=== PATIENT | female | born 1990 | race Caucasian/White ===

== ENCOUNTER 2022-02-24 11:37 | Emergency (ER) | payer MEDICAID ==
[~2022-02-24] VITALS: Ht 162.6 cm; Wt 90.9 kg
[2022-02-24 12:29] LABS: BASOPHILS # (AUTO) 0.1 X10'3 (0-0.2); BASOPHILS % (AUTO) 0.8 % (0-1); EOSINOPHILS # (AUTO) 0.1 X10'3 (0-0.9); EOSINOPHILS % (AUTO) 1.5 % (0-6); HEMATOCRIT 40.9 % (35.0-45.0); HEMOGLOBIN 13.6 g/dl (12.0-16.0); LYMPHOCYTES # (AUTO) 2.5 X10'3 (1.1-4.8); LYMPHOCYTES % (AUTO) 39.5 % (21-51); MEAN CORPUSCULAR HEMOGLOBIN 31.6 PG (27.0-31.0); MEAN CORPUSCULAR HGB CONC 33.2 g/dL (33.0-36.5); MEAN PLATELET VOLUME 7.5 FL (7.4-10.4); MONOCYTES # (AUTO) 0.5 X10'3 (0-0.9); MONOCYTES % (AUTO) 7.7 % (2-12); NEUTROPHILS # (AUTO) 3.1 X10'3 (1.8-7.7); NEUTROPHILS % (AUTO) 50.5 % (42-75); PLATELET COUNT 262 X10'3 (140-440); RED BLOOD COUNT 4.31 X10'6 (4.20-5.60); RED CELL DISTRIBUTION WIDTH 13.9 % (11.5-14.5); WHITE BLOOD COUNT 6.2 X10'3 (4.5-11.0)
[2022-02-24 12:39] LABS: ALANINE AMINOTRANSFERASE 26 U/L (12-78); ALBUMIN 3.6 G/DL (3.4-5.0); ALKALINE PHOSPHATASE 61 IU/L (46-116); ANION GAP 8 (8-16); ASPARTATE AMINO TRANSFERASE 18 U/L (10-37); BILIRUBIN,TOTAL 0.4 MG/DL (0.1-1.0); BLOOD UREA NITROGEN 14 MG/DL (7-18); BUN/CREATININE RATIO 18.2 (6.6-38.0); CALCIUM 9.4 MG/DL (8.5-10.1); CHLORIDE 104 MMOL/L (99-107); CREATININE 0.77 MG/DL (0.40-0.90); ETHANOL < 0.010 GM/DL (0.0-0.010); GLUCOSE 95 MG/DL (70-104); POTASSIUM 4.5 MMOL/L (3.5-5.1); SODIUM 137 MMOL/L (135-145); TOTAL PROTEIN 7.3 G/DL (6.4-8.2); eGFR 86 ML/MIN
[2022-02-24 13:01] LABS: URINE HCG NEGATIVE (NEG)
[2022-02-24 13:05] LABS: CLARITY,URINE SLIGHTLY CLOUDY (Clear); COLOR,URINE YELLOW (Yellow); GLUCOSE, URINE NEGATIVE (Neg); KETONES,URINE NEGATIVE (Neg); LEUKOCYTE ESTERASE ,URINE MODERATE (Neg); NITRITES, URINE NEGATIVE (Neg); OCCULT BLOOD,URINE NEGATIVE (Neg); PH,URINE 6.5 (4.8-8.0); PROTEIN,URINE NEGATIVE (Neg); UA COLLECTION TYPE CLN CATCH MIDSTREAM; UROBILINOGEN,URINE 0.2 E.U/dL (0.2-1.0)
--- NOTE | 2022-02-24 13:10 | NUR ---
Patient complaining of feeling suicidal. Patient's father is sick and she wants to go back to [place]. Patient is calm and cooperative. continue to monitor.
[2022-02-24 13:12] LABS: BACTERIA,URINE 1+ /HPF (Neg); MUCUS STRANDS NONE SEEN /LPF (Neg); RBC,URINE NONE SEEN /HPF (0-2); SQUAMOUS EPITHELIAL CELL,UR MODERATE /LPF (FEW); WBC CLUMPS,URINE FEW /HPF (NEGATIVE)
[2022-02-24 13:21] LABS: URINE AMPHETAMINE SCREEN NEGATIVE (Neg); URINE BARBITUATE SCREEN NEGATIVE (Neg); URINE BENZODIAZEPINES SCREEN NEGATIVE (Neg); URINE CANNABINOID SCREEN NEGATIVE (Neg); URINE COCAINE SCREEN NEGATIVE (Neg); URINE METHADONE SCREEN NEGATIVE (Neg); URINE OPIATE SCREEN NEGATIVE (Neg); URINE PHENCYCLIDINE SCREEN NEGATIVE (Neg)
[2022-02-24] MEDS ORDERED: CLON-527 PO (13:48)
[2022-02-24] MEDS ORDERED: ESCI5TAB PO (13:48)
[2022-02-24] MEDS ORDERED: ARIP5TAB14 PO (13:48)
[2022-02-24] MEDS ORDERED: PROP10TA10 PO (13:48)
[2022-02-24] MEDS ORDERED: TRAM50TA2 PO (13:48)
[2022-02-24] MEDS ORDERED: HYDR50CA PO (13:48)
[2022-02-24] MEDS ORDERED: MULT-1086 PO (13:48)
[2022-02-24] MEDS ORDERED: DIVA125T31 PO (13:48)
[2022-02-24] MEDS ORDERED: BISA-155 PO (13:48)
[2022-02-24] MEDS ORDERED: OSC500T PO (13:48)
--- NOTE | 2022-02-24 14:37 | NUR ---
Patient identifies as bisexual.
[2022-02-24] MEDS ORDERED: clonazePAM 1mg tablet PO PRN (15:05)
[2022-02-24] MEDS ORDERED: bisacodyl 5mg tablet.DR PO PRN (15:05)
--- NOTE | 2022-02-24 15:09 | NUR ---
Patient denies being suicidal and homicidal. Patient was just feeling down because her dad has cancer and she can't be there for him. Patient was given a discharge notice at [facility]. RN gave patient the T.V. so she can relax. Continue to monitor.
[2022-02-24] MEDS: traMADol 50MG tablet PO PRN (15:32)
[2022-02-24] MEDS ORDERED: nicotine 14mg patch - 24hr TD ONE ×2 (16:20→16:40)
--- NOTE | 2022-02-24 17:04 | NUR ---
Patient watching T.V. No distress observed. Continue to monitor.
--- NOTE | 2022-02-24 17:20 | NUR ---
Tiffanie DUNCAN, evaluating patient. No distress observed. Continue to monitor.
[2022-02-24] MEDS: propranolol 10mg tablet PO SCH ×2 (17:23→20:35)
--- NOTE | 2022-02-24 18:30 | NUR ---
received report from Alesha RN, pt resting in bed watching, no resp distress
--- NOTE | 2022-02-24 20:30 | NUR ---
HS meds administered
[2022-02-24] MEDS: nitrofuran monohydrate/nitrofuran macrocrysal 100 MG (MacroBID) capsule PO SCH (20:33)
[2022-02-24] MEDS: divalproex 250mg tablet, delayed-release PO SCH (20:35)
[2022-02-24] MEDS: clonazePAM 1mg tablet PO SCH (20:36)
[2022-02-24] MEDS ORDERED: hydrOXYzine 25 MG tablet PO SCH (21:00)
--- NOTE | 2022-02-24 22:30 | NUR ---
pt ambulated to the restroom and back to bed
--- NOTE | 2022-02-24 22:30 | NUR ---
Favio marshall in [facility] - 02/25/22 at 0057 by NINI pt sleeping, eyes closed, chest rise and falls
--- NOTE | 2022-02-24 22:30 | NUR ---
pt sleeping on back, eyes closed, snoring and chest rise and falls
--- NOTE | 2022-02-24 22:30 | NUR ---
pt sleeping, eyes closed with chest rise and fall
--- NOTE | 2022-02-25 00:30 | NUR ---
pt sleeping, snoring, eyes closed, no distress noted
--- NOTE | 2022-02-25 02:30 | NUR ---
pt up to bathroom then back to sleep
--- NOTE | 2022-02-25 04:30 | NUR ---
pt sleeping on back, snoring, eyes closed and chest rises and falls
--- NOTE | 2022-02-25 06:11 | NUR ---
pt resting eyes closed, snoring, no distress
[2022-02-25 06:45] VITALS: BP 122/84
--- NOTE | 2022-02-25 06:50 | NUR ---
Patient sleeping supine. Non labored, snoring respirations. No distress observed. Continue to monitor.
[2022-02-25] MEDS ORDERED: ESCITALOPRAM OXALATE 5 MG TABLET PO SCH (08:00)
[2022-02-25] MEDS ORDERED: nicotine 14mg patch - 24hr TD SCH (08:00)
[2022-02-25] MEDS ORDERED: multivitamins, therapeutics tablet PO SCH (08:00)
[2022-02-25] MEDS ORDERED: aripiprazole 5mg tablet PO SCH (08:00)
--- NOTE | 2022-02-25 08:22 | NUR ---
Patient eating breakfast. No distress observed. Continue to monitor.
[2022-02-25] MEDS: nitrofuran monohydrate/nitrofuran macrocrysal 100 MG (MacroBID) capsule PO SCH (08:55)
[2022-02-25] MEDS: propranolol 10mg tablet PO SCH ×2 (08:55→13:36)
[2022-02-25] MEDS: divalproex 250mg tablet, delayed-release PO SCH ×2 (08:56→13:36)
[2022-02-25] MEDS: clonazePAM 1mg tablet PO SCH (08:56)
--- NOTE | 2022-02-25 10:03 | NUR ---
Patient sleeping. No distress observed. Continue to monitor.
--- NOTE | 2022-02-25 12:13 | NUR ---
Patient eating lunch. No distress observed. Continue to monitor.
--- NOTE | 2022-02-25 13:46 | NUR ---
EKG ordered by Krissy Cadena to check QT interval. EKG is a requirement for admission. Okay by Dr. Victor. Perfomed now by [facility]. Will fax to [facility], phone number [phone].
[2022-02-25] MEDS: traMADol 50MG tablet PO PRN (14:10)
--- NOTE | 2022-02-25 15:22 | NUR ---
Patient watching T.V. No distress observed. Continue to monitor.
--- NOTE | 2022-02-25 16:25 | NUR ---
belongings given back to patient, no valuables were retrieved from the safe. Pt sent with a sack lunch to receiving facility.
== END 2022-02-25 15:58 ==
LOC: ER 11:38
DX: F29 Unspecified psychosis not due to a substance or known physiological condition (principal); Z20.822 Contact with and (suspected) exposure to COVID-19; Z79.899 Other long term (current) drug therapy; Z88.6 Allergy status to analgesic agent; Z88.5 Allergy status to narcotic agent
CPT/HCPCS: 36415; 80053; 80305; 80320; 81001; 81025; 84443; 85025; 87088; 87811; 93005; 99285; Q0177